=== PATIENT | female | born 1950 | race Caucasian/White ===

== ENCOUNTER 2016-06-26 12:33 | Inpatient (IN) ==
[2016-06-26] MEDS ORDERED: 0.9 % Sodium Chloride 2,000 ML ONE (12:42)
[2016-06-26] MEDS ORDERED: 0.9 % Sodium Chloride 1,000 ML IVC ONE ×3 (12:54→15:49)
--- NOTE | 2016-06-26 12:59 | Emergency Department Note ---
Disposition Clinical Impression: Syncope Qualifiers: Syncope type: unspecified Qualified Code(s): R55 - Syncope and collapse Leukocytosis Qualifiers: Leukocytosis type: other Qualified Code(s): D72.828 - Other elevated white blood cell count Hypotension Qualifiers: Hypotension type: unspecified hypotension type Qualified Code(s): I95.9 - Hypotension, unspecified Disposition: Admitted As Inpatient Condition: Undetermined Referrals: NO,PCP [Non-Partnered Physician] - Forms: ED Satisfaction Letter Time of Disposition: 15:48 Syncope HPI - General Chief Complaint: ED Syncope Stated Complaint: syncope Time Seen by Provider: 06/26/16 12:44 Source: patient Mode of arrival: EMS Limitations: no limitations Nursing Notes Reviewed: Yes Vital Signs Reviewed: Yes - History of Present Illness HPI Narrative: 65-year-old female with history of AR, hypertension, hyperlipidemia, aortic aneurysm right [facility] after experiencing heart palpitations last night. The patient stated that she had a syncopal episode where she hurt her left shoulder this morning. The patient arrives to the emergency department slightly hypotensive. Her blood pressures 80s over 50s at this time. The patient is mentating appropriately. She is answering questions appropriately. She is a GCS of 15 at this time. The patient is complaining of slight abdominal pain as well. The patient states that over the past few days she has been coughing and has "sore ribs". The patient denies any fevers. She denies any previous history of anything like this in the past. Patient denies any other complaints. Pt Subjective Complaint: loss of consciousness Onset (ago): Just [employer] Number of episodes: 1 Prodromal Symptoms: lightheaded Witnessed: yes - by bystander Context: at rest Injuries Sustained Associated with Event: none Current Symptoms: abdominal pain History: none Treatments prior to arrival: none Associated trauma secondary to event: Yes Trauma description: - Related Data Home Medications Medication Instructions Recorded Confirmed Albuterol Neb [Proventil Neb] 2.5 mg IH QID PRN 06/26/16 06/26/16 Alprazolam [Xanax 0.5 MG Tablet] 0.5 mg PO BID PRN 06/26/16 06/26/16 Aspirin 81 mg PO DAILY 06/26/16 06/26/16 Atorvastatin [Lipitor] 40 mg PO HS 06/26/16 06/26/16 Carbidopa/Levodopa 25/100 [Sinemet 1 each PO QID 06/26/16 06/26/16 25/100] Fluticasone Propionate Nasal 50 mcg NS DAILY PRN 06/26/16 06/26/16 [Flonase] HYDROcodone/Acet 5/325 mg [[place] 1 tab PO Q8H PRN 06/26/16 06/26/16 5-325 mg] Metoprolol XL (24 HR) Succ [Toprol 50 mg PO DAILY 06/26/16 06/26/16 XL] Nitroglycerin [Nitrostat] 0.4 mg SL Q5M PRN 06/26/16 06/26/16 Oxygen 2 l NS AD 06/26/16 06/26/16 Pantoprazole Sodium [Protonix] 40 mg PO DAILY 06/26/16 06/26/16 Potassium Chloride [K-Tab ER] 20 meq PO DAILY 06/26/16 06/26/16 Ropinirole HCl [Requip] 0.5 mg PO HS 06/26/16 06/26/16 Sertraline [Zoloft] 50 mg PO DAILY 06/26/16 06/26/16 Allergies Allergy/AdvReac Type Severity Reaction Status Date / Time Cyclobenzaprine Allergy Agitated Verified 06/17/16 21:10 levofloxacin [From Levaquin] Allergy See Verified 06/17/16 21:10 Comments morphine Allergy Rash Verified 06/17/16 21:10 amitriptyline AdvReac See Verified 06/17/16 21:10 Comments fentanyl AdvReac Itching Verified 06/17/16 21:10 ondansetron AdvReac Itching Verified 06/17/16 21:10 [From Zofran (as hydrochloride)] Past Medical History - Past Medical History Medical history: Reports: aortic aneurysm, COPD, myocardial infarction, other Surgical history: Reports: breast surgery, coronary bypass (CABG) Psychiatric history: Reports: anxiety - Social History Smoking Status: Current every day smoker Smokeless Tobacco Status: No Alcohol use: Reports: none Drug use: Reports: none Physical Exam - General Limitations: no limitations General appearance: alert Course - Reevaluation(s) Reevaluation #1: Patient's CT of her abdomen revealed no acute findings. 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 Given the patient's blood pressure response to IV fluids, we will treat this as a possible sepsis. The patient did have recent upper respiratory infection she was treated on antibiotic. She is also having lower abdominal suprapubic pain. The patient has been responding to IV fluids. She has received 1.5 L at this time with her latest blood pressure being 112/52. The patient states she is feeling better overall. We will place the patient in a sling at this time. We will begin the patient on vancomycin and Zosyn. Time: 14:03 Reevaluation #2: Patient remains be normotensive. Patient states she is overall feeling much better at this time. Urinalysis is negative. The patient does have a leukocytosis with a mild left shift. The patient is not meningitic and has no nuchal rigidity at this time. This does not appear to be vasovagal as the hypotension persisted and was very responsive to fluids. The patient's abdominal CT demonstrates no acute findings. Chest x-ray demonstrates no acute findings. The patient does have a left lateral clavicular fracture. The patient's leukocytosis, with her syncope and hypotension cannot be explained at this time. We do not feels the patient is safe enough to go home at this time. We will admit the patient to the hospital with further workup. The patient was started on vancomycin and Zosyn. Blood cultures were drawn. Lactic acid was 1.7. The patient's left upper extremity is placed in a sling. Time: 14:48 Vital Signs Temperature 97.6 F 06/26/16 12:34 Pulse Rate 64 06/26/16 12:34 Respiratory Rate 18 06/26/16 12:34 Blood Pressure 61/30 06/26/16 12:34 O2 Sat by Pulse Oximetry 98 06/26/16 12:34 Temperature 97.6 F 06/26/16 12:34 Pulse Rate 62 06/26/16 15:11 Respiratory Rate 18 06/26/16 15:11 Blood Pressure 105/55 06/26/16 15:11 O2 Sat by Pulse Oximetry 98 06/26/16 15:11 Oxygen Delivery Oxygen Delivery Nasal Cannula Syncope - MDM Narrative Medical decision making narrative: Patient accepted by Brittney Adhikari NP. - Medical Records Medical records reviewed: Yes I reviewed the patient's medical records. - Lab Data Lab results reviewed: Yes I reviewed the patient's lab results. Result diagrams: 03/27/17 12:45 06/26/16 12:45 Lab Results 06/26/16 06/26/16 06/26/16 Range/Units 12:45 12:45 12:45 WBC 18.9 H (4.3-11.1) K/mcL RBC 5.81 H (3.82-4.97) M/mcL Hgb 17.2 H (11.5-15.4) g/dL Hct 50.9 H (35.3-44.9) % MCV 87.6 (83.0-100.0) fL MCH 29.6 (28.0-33.3) pg MCHC 33.8 (31.6-35.5) g/dL RDW 14.3 (11.5-14.5) % Plt Count 286 (140-400) K/mcL MPV 8.5 L (9.4-12.4) fL Immature Gran % 1.5 (0-4) % Seg Neutrophils % 74.7 % Lymphocytes % 14.5 % Monocytes % 8.6 % Eosinophils % 0.4 % Basophils % 0.3 % Neutrophils # 14.1 H (1.6-8.9) K/mcL Lymphocytes # 2.7 (0.6-4.6) K/mcL Monocytes # 1.6 H (0.0-1.3) K/mcL Eosinophils # 0.1 (0.0-0.6) K/mcL Basophils # 0.1 (0.0-0.2) K/mcL PT 10.9 (9.4-12.1) Seconds INR 1.0 APTT 23.2 L (26.0-36.0) Seconds Sodium 137 (136-145) mEq/L Potassium 4.1 (3.5-4.5) mEq/L Chloride 104 (98-109) mEq/L Carbon Dioxide 26 (19-29) mEq/L BUN 26 H (7-20) mg/dL Creatinine 0.90 (0.57-1.11) mg/dL Est GFR ( Amer) > 60 (> 60) Est GFR (Non-Af Amer) > 60 (> 60) BUN/Creatinine Ratio 29 H (6-26) Glucose 104 H (70-99) mg/dL Calculated Osmolality 289 (280-300) Lactic Acid (0.5-2.2) mmol/L Calcium 9.1 (8.6-10.8) mg/dL Troponin I (0-0.03) ng/mL Urine Color (Yellow) Urine Clarity (Clear) Urine pH (5.0-8.0) pH Units Ur Specific [place] (1.010-1.025) Urine Protein (Neg-Trace) mg/dL Urine Glucose (UA) (Normal) mg/dL Urine Ketones (Negative) mg/dL Urine Blood (Negative) Urine Nitrite (Negative) Urine Bilirubin (Negative) Urine Urobilinogen (Normal) mg/dL Ur Leukocyte Esterase (Negative) Urine Microscopic RBC (0-3) per hpf Urine Microscopic WBC (0-3) per hpf Ur Squamous Epith Cells (None-Few) per lpf Urine Bacteria (None-Few) per hpf Hyaline Casts (None-Few) per lpf Blood Type Antibody Screen 06/26/16 06/26/16 06/26/16 Range/Units 12:45 12:45 13:05 WBC (4.3-11.1) K/mcL RBC (3.82-4.97) M/mcL Hgb (11.5-15.4) g/dL Hct (35.3-44.9) % MCV (83.0-100.0) fL MCH (28.0-33.3) pg MCHC (31.6-35.5) g/dL RDW (11.5-14.5) % Plt Count (140-400) K/mcL MPV (9.4-12.4) fL Immature Gran % (0-4) % Seg Neutrophils % % Lymphocytes % % Monocytes % % Eosinophils % % Basophils % % Neutrophils # (1.6-8.9) K/mcL Lymphocytes # (0.6-4.6) K/mcL Monocytes # (0.0-1.3) K/mcL Eosinophils # (0.0-0.6) K/mcL Basophils # (0.0-0.2) K/mcL PT (9.4-12.1) Seconds INR APTT (26.0-36.0) Seconds Sodium (136-145) mEq/L Potassium (3.5-4.5) mEq/L Chloride (98-109) mEq/L Carbon Dioxide (19-29) mEq/L BUN (7-20) mg/dL Creatinine (0.57-1.11) mg/dL Est GFR ( Amer) (> 60) Est GFR (Non-Af Amer) (> 60) BUN/Creatinine Ratio (6-26) Glucose (70-99) mg/dL Calculated Osmolality (280-300) Lactic Acid 1.7 (0.5-2.2) mmol/L Calcium (8.6-10.8) mg/dL Troponin I 0.00 (0-0.03) ng/mL Urine Color (Yellow) Urine Clarity (Clear) Urine pH (5.0-8.0) pH Units Ur Specific [place] (1.010-1.025) Urine Protein (Neg-Trace) mg/dL Urine Glucose (UA) (Normal) mg/dL Urine Ketones (Negative) mg/dL Urine Blood (Negative) Urine Nitrite (Negative) Urine Bilirubin (Negative) Urine Urobilinogen (Normal) mg/dL Ur Leukocyte Esterase (Negative) Urine Microscopic RBC (0-3) per hpf Urine Microscopic WBC (0-3) per hpf Ur Squamous Epith Cells (None-Few) per lpf Urine Bacteria (None-Few) per hpf Hyaline Casts (None-Few) per lpf Blood Type A POSITIVE Antibody Screen NEGATIVE 06/26/16 Range/Units 13:57 WBC (4.3-11.1) K/mcL RBC (3.82-4.97) M/mcL Hgb (11.5-15.4) g/dL Hct (35.3-44.9) % MCV (83.0-100.0) fL MCH (28.0-33.3) pg MCHC (31.6-35.5) g/dL RDW (11.5-14.5) % Plt Count (140-400) K/mcL MPV (9.4-12.4) fL Immature Gran % (0-4) % Seg Neutrophils % % Lymphocytes % % Monocytes % % Eosinophils % % Basophils % % Neutrophils # (1.6-8.9) K/mcL Lymphocytes # (0.6-4.6) K/mcL Monocytes # (0.0-1.3) K/mcL Eosinophils # (0.0-0.6) K/mcL Basophils # (0.0-0.2) K/mcL PT (9.4-12.1) Seconds INR APTT (26.0-36.0) Seconds Sodium (136-145) mEq/L Potassium (3.5-4.5) mEq/L Chloride (98-109) mEq/L Carbon Dioxide (19-29) mEq/L BUN (7-20) mg/dL Creatinine (0.57-1.11) mg/dL Est GFR ( Amer) (> 60) Est GFR (Non-Af Amer) (> 60) BUN/Creatinine Ratio (6-26) Glucose (70-99) mg/dL Calculated Osmolality (280-300) Lactic Acid (0.5-2.2) mmol/L Calcium (8.6-10.8) mg/dL Troponin I (0-0.03) ng/mL Urine Color Yellow (Yellow) Urine Clarity Clear (Clear) Urine pH 6.0 (5.0-8.0) pH Units Ur Specific [place] 1.025 (1.010-1.025) Urine Protein Negative (Neg-Trace) mg/dL Urine Glucose (UA) Normal (Normal) mg/dL Urine Ketones Negative (Negative) mg/dL Urine Blood Small H (Negative) Urine Nitrite Negative (Negative) Urine Bilirubin Negative (Negative) Urine Urobilinogen Normal (Normal) mg/dL Ur Leukocyte Esterase Negative (Negative) Urine Microscopic RBC 5-15 H (0-3) per hpf Urine Microscopic WBC 0-3 (0-3) per hpf Ur Squamous Epith Cells Many H (None-Few) per lpf Urine Bacteria None Seen (None-Few) per hpf Hyaline Casts None Seen (None-Few) per lpf Blood Type Antibody Screen - Radiology Data Radiology results reviewed: Yes I reviewed the patient's radiology results. - EKG Data EKG attestation: Yes I reviewed and interpreted this EKG. EKG results narrative: EKG #1. Normal sinus rhythm. Heart rate 77 bpm. NE interval 142 ms. QTC 375 ms. Normal axis. Normal sinus rhythm with no ST elevation or ST depression noted. EKG is difficult to assess due to patient's artifact. EKG will be repeated. EKG #2 heart rate 65 bpm. NE interval 140 ms. QTc [address] elevation or ST depression noted. In leads 2, 3, aVF with prominent Q waves noted. No acute changes noted.
--- NOTE | 2016-06-26 13:02 | Emergency Department Note ---
Disposition Clinical Impression: Syncope, Leukocytosis, Hypotension Disposition: Admitted As Inpatient Condition: Undetermined General Adult HPI - General Chief complaint: ED Syncope Stated complaint: syncope Time Seen by Provider: 06/26/16 12:44 Source: patient Mode of arrival: EMS Limitations: no limitations - History of Present Illness Pain Scale: 5 - Related Data Home Medications Medication Instructions Recorded Confirmed Albuterol Neb [Proventil Neb] 2.5 mg IH QID PRN 06/26/16 06/26/16 Alprazolam [Xanax 0.5 MG Tablet] 0.5 mg PO BID PRN 06/26/16 06/26/16 Aspirin 81 mg PO DAILY 06/26/16 06/26/16 Atorvastatin [Lipitor] 40 mg PO HS 06/26/16 06/26/16 Carbidopa/Levodopa [Sinemet 1 each PO QID 06/26/16 06/26/16] Fluticasone Propionate Nasal 50 mcg NS DAILY PRN 06/26/16 06/26/16 [Flonase] HYDROcodone/Acet 5/325 mg [[place] 1 tab PO Q8H PRN 06/26/16 06/26/16 5-325 mg] Metoprolol XL (24 HR) Succ [Toprol 50 mg PO DAILY 06/26/16 06/26/16 XL] Nitroglycerin [Nitrostat] 0.4 mg SL Q5M PRN 06/26/16 06/26/16 Oxygen 2 l NS AD 06/26/16 06/26/16 Pantoprazole Sodium [Protonix] 40 mg PO DAILY 06/26/16 06/26/16 Potassium Chloride [K-Tab ER] 20 meq PO DAILY 06/26/16 06/26/16 Ropinirole HCl [Requip] 0.5 mg PO HS 06/26/16 06/26/16 Sertraline [Zoloft] 50 mg PO DAILY 06/26/16 06/26/16 Allergies Allergy/AdvReac Type Severity Reaction Status Date / Time Cyclobenzaprine Allergy Agitated Verified 06/17/16 21:10 levofloxacin [From Levaquin] Allergy See Verified 06/17/16 21:10 Comments morphine Allergy Rash Verified 06/17/16 21:10 amitriptyline AdvReac See Verified 06/17/16 21:10 Comments fentanyl AdvReac Itching Verified 06/17/16 21:10 ondansetron AdvReac Itching Verified 06/17/16 21:10 [From Zofran (as hydrochloride)] Past Medical History - Past Medical History Medical history: Reports: aortic aneurysm, COPD, myocardial infarction, other Surgical history: Reports: breast surgery, coronary bypass (CABG) Psychiatric history: Reports: anxiety - Social History Smoking Status: Current every day smoker Smokeless Tobacco Status: No Alcohol use: Reports: none Drug use: Reports: none Physical Exam - General Limitations: no limitations General appearance: alert Course - Reevaluation(s) Reevaluation #1: I saw the patient with the resident, Dr. Castañeda. Patient presents after a syncopal episode in her bathroom. I talked with her and she said she felt a little weak last night. Went to bed and woke up early this morning and was feeling so little bit run down and went back to bed got up prior to arrival to the emergency department and went back to the bathroom and said she started feeling really weak and lightheaded and actually fell to the ground. She injured her left shoulder but denies any other injury. He was have been sick the prior week with bronchitis and was treated with antibiotics and is still coughing but says that her chest feels pretty sore with coughing. She denied abdominal pain to me but when I did my abdominal examination she had epigastric tenderness and she had left lower quadrant tenderness. Patient has a known aneurysm. She is obese. I tried to do transabdominal ultrasound and saw some aneurysm but did not see any free fluid in the belly. Initial EKG is not showing evidence of acute ischemia although she is be some indication of old changes inferiorly. We are getting a quick repeat to make sure this is not an inferior IN because the patient is very hypotensive yet her heart rate is only 70. If the EKG does not show IN, patient will be taken straight to CAT scan for evaluation of the abdomen. The patient is alert and oriented and other than the left shoulder pain and feeling lightheaded, she has no other complaint despite the physical exam findings. Time: 13:02 Reevaluation #2: Repeat EKG does not show any acute ischemic changes. Patient is looking better and feeling better. Blood pressure is coming up with the IV fluids. She is just come back from CT and we are waiting for the results. Time: 13:14 Reevaluation #3: CT scan was negative for aneurysm bleeding. No other obvious intra-abdominal pathology was seen. Patient's blood pressure did come up to triple digits. We see now his white count is over 18,000. Coupling this elevated white count with hypotension and tenderness to the lower abdomen, I suspect possible urinary tract infection and maybe urosepsis. She does have a broken left collarbone but I do not think this hypotension is vasovagal because it is just been to persistent and it does not explain the elevated white count. We will start working the patient up for sepsis. We will wait for the urine result. Either way she needs to be admitted to the hospital. Time: 14:00 Vital Signs Temperature 97.6 F 06/26/16 12:34 Pulse Rate 64 06/26/16 12:34 Respiratory Rate 18 06/26/16 12:34 Blood Pressure 61/30 06/26/16 12:34 O2 Sat by Pulse Oximetry 98 06/26/16 12:34 Temperature 98.2 F 06/26/16 19:52 Pulse Rate 62 06/26/16 19:52 Respiratory Rate 17 06/26/16 19:52 Blood Pressure 99/55 06/26/16 19:52 O2 Sat by Pulse Oximetry 96 06/26/16 19:52 Oxygen Delivery Oxygen Delivery Nasal Cannula Medical Decision Making - Lab Data Result diagrams: 06/26/16 12:45 06/26/16 12:45 Lab Results 06/26/16 06/26/16 06/26/16 Range/Units 12:45 12:45 12:45 WBC 18.9 H (4.3-11.1) K/mcL RBC 5.81 H (3.82-4.97) M/mcL Hgb 17.2 H (11.5-15.4) g/dL Hct 50.9 H (35.3-44.9) % MCV 87.6 (83.0-100.0) fL MCH 29.6 (28.0-33.3) pg MCHC 33.8 (31.6-35.5) g/dL RDW 14.3 (11.5-14.5) % Plt Count 286 (140-400) K/mcL MPV 8.5 L (9.4-12.4) fL Immature Gran % 1.5 (0-4) % Seg Neutrophils % 74.7 % Lymphocytes % 14.5 % Monocytes % 8.6 % Eosinophils % 0.4 % Basophils % 0.3 % Neutrophils # 14.1 H (1.6-8.9) K/mcL Lymphocytes # 2.7 (0.6-4.6) K/mcL Monocytes # 1.6 H (0.0-1.3) K/mcL Eosinophils # 0.1 (0.0-0.6) K/mcL Basophils # 0.1 (0.0-0.2) K/mcL PT 10.9 (9.4-12.1) Seconds INR 1.0 APTT 23.2 L (26.0-36.0) Seconds Sodium 137 (136-145) mEq/L Potassium 4.1 (3.5-4.5) mEq/L Chloride 104 (98-109) mEq/L Carbon Dioxide 26 (19-29) mEq/L BUN 26 H (7-20) mg/dL Creatinine 0.90 (0.57-1.11) mg/dL Est GFR ( Amer) > 60 (> 60) Est GFR (Non-Af Amer) > 60 (> 60) BUN/Creatinine Ratio 29 H (6-26) Glucose 104 H (70-99) mg/dL Calculated Osmolality 289 (280-300) Lactic Acid (0.5-2.2) mmol/L Calcium 9.1 (8.6-10.8) mg/dL Troponin I (0-0.03) ng/mL Urine Color (Yellow) Urine Clarity (Clear) Urine pH (5.0-8.0) pH Units Ur Specific [place] (1.010-1.025) Urine Protein (Neg-Trace) mg/dL Urine Glucose (UA) (Normal) mg/dL Urine Ketones (Negative) mg/dL Urine Blood (Negative) Urine Nitrite (Negative) Urine Bilirubin (Negative) Urine Urobilinogen (Normal) mg/dL Ur Leukocyte Esterase (Negative) Urine Microscopic RBC (0-3) per hpf Urine Microscopic WBC (0-3) per hpf Ur Squamous Epith Cells (None-Few) per lpf Urine Bacteria (None-Few) per hpf Hyaline Casts (None-Few) per lpf Blood Type Antibody Screen 03/27/17 03/27/17 03/27/17 Range/Units 12:45 12:45 13:05 WBC (4.3-11.1) K/mcL RBC (3.82-4.97) M/mcL Hgb (11.5-15.4) g/dL Hct (35.3-44.9) % MCV (83.0-100.0) fL MCH (28.0-33.3) pg MCHC (31.6-35.5) g/dL RDW (11.5-14.5) % Plt Count (140-400) K/mcL MPV (9.4-12.4) fL Immature Gran % (0-4) % Seg Neutrophils % % Lymphocytes % % Monocytes % % Eosinophils % % Basophils % % Neutrophils # (1.6-8.9) K/mcL Lymphocytes # (0.6-4.6) K/mcL Monocytes # (0.0-1.3) K/mcL Eosinophils # (0.0-0.6) K/mcL Basophils # (0.0-0.2) K/mcL PT (9.4-12.1) Seconds INR APTT (26.0-36.0) Seconds Sodium (136-145) mEq/L Potassium (3.5-4.5) mEq/L Chloride (98-109) mEq/L Carbon Dioxide (19-29) mEq/L BUN (7-20) mg/dL Creatinine (0.57-1.11) mg/dL Est GFR ( Amer) (> 60) Est GFR (Non-Af Amer) (> 60) BUN/Creatinine Ratio (6-26) Glucose (70-99) mg/dL Calculated Osmolality (280-300) Lactic Acid 1.7 (0.5-2.2) mmol/L Calcium (8.6-10.8) mg/dL Troponin I 0.00 (0-0.03) ng/mL Urine Color (Yellow) Urine Clarity (Clear) Urine pH (5.0-8.0) pH Units Ur Specific [place] (1.010-1.025) Urine Protein (Neg-Trace) mg/dL Urine Glucose (UA) (Normal) mg/dL Urine Ketones (Negative) mg/dL Urine Blood (Negative) Urine Nitrite (Negative) Urine Bilirubin (Negative) Urine Urobilinogen (Normal) mg/dL Ur Leukocyte Esterase (Negative) Urine Microscopic RBC (0-3) per hpf Urine Microscopic WBC (0-3) per hpf Ur Squamous Epith Cells (None-Few) per lpf Urine Bacteria (None-Few) per hpf Hyaline Casts (None-Few) per lpf Blood Type A POSITIVE Antibody Screen NEGATIVE 06/26/16 Range/Units 13:57 WBC (4.3-11.1) K/mcL RBC (3.82-4.97) M/mcL Hgb (11.5-15.4) g/dL Hct (35.3-44.9) % MCV (83.0-100.0) fL MCH (28.0-33.3) pg MCHC (31.6-35.5) g/dL RDW (11.5-14.5) % Plt Count (140-400) K/mcL MPV (9.4-12.4) fL Immature Gran % (0-4) % Seg Neutrophils % % Lymphocytes % % Monocytes % % Eosinophils % % Basophils % % Neutrophils # (1.6-8.9) K/mcL Lymphocytes # (0.6-4.6) K/mcL Monocytes # (0.0-1.3) K/mcL Eosinophils # (0.0-0.6) K/mcL Basophils # (0.0-0.2) K/mcL PT (9.4-12.1) Seconds INR APTT (26.0-36.0) Seconds Sodium (136-145) mEq/L Potassium (3.5-4.5) mEq/L Chloride (98-109) mEq/L Carbon Dioxide (19-29) mEq/L BUN (7-20) mg/dL Creatinine (0.57-1.11) mg/dL Est GFR ( Amer) (> 60) Est GFR (Non-Af Amer) (> 60) BUN/Creatinine Ratio (6-26) Glucose (70-99) mg/dL Calculated Osmolality (280-300) Lactic Acid (0.5-2.2) mmol/L Calcium (8.6-10.8) mg/dL Troponin I (0-0.03) ng/mL Urine Color Yellow (Yellow) Urine Clarity Clear (Clear) Urine pH 6.0 (5.0-8.0) pH Units Ur Specific [place] 1.025 (1.010-1.025) Urine Protein Negative (Neg-Trace) mg/dL Urine Glucose (UA) Normal (Normal) mg/dL Urine Ketones Negative (Negative) mg/dL Urine Blood Small H (Negative) Urine Nitrite Negative (Negative) Urine Bilirubin Negative (Negative) Urine Urobilinogen Normal (Normal) mg/dL Ur Leukocyte Esterase Negative (Negative) Urine Microscopic RBC 5-15 H (0-3) per hpf Urine Microscopic WBC 0-3 (0-3) per hpf Ur Squamous Epith Cells Many H (None-Few) per lpf Urine Bacteria None Seen (None-Few) per hpf Hyaline Casts None Seen (None-Few) per lpf Blood Type Antibody Screen Attestation Statement - Attestation Attestation: I, Dr. Matos, examined this patient [id number] and my medical decision- making was reviewed with Dr. Castañeda, Resident Physician. I agree with the documented findings, disposition and treatment plan as described except to the extent set forth below. Please see my progress notes for details.
[2016-06-26 13:06] LABS: Basophils # 0.1 K/mcL (0.0-0.2); Basophils % 0.3 %; Eosinophils # 0.1 K/mcL (0.0-0.6); Eosinophils % 0.4 %; Hematocrit 50.9 % (35.3-44.9); Hemoglobin 17.2 g/dL (11.5-15.4); Immature Granulocytes % 1.5 % (0-4); Lymphocytes # 2.7 K/mcL (0.6-4.6); Lymphocytes % 14.5 %; Mean Corpuscular HGB Conc 33.8 g/dL (31.6-35.5); Mean Corpuscular Hemoglobin 29.6 pg (28.0-33.3); Mean Corpuscular Volume 87.6 fL (83.0-100.0); Mean Platelet Volume 8.5 fL (9.4-12.4); Monocytes # 1.6 K/mcL (0.0-1.3); Monocytes % 8.6 %; Neutrophils # 14.1 K/mcL (1.6-8.9); Platelet Count 286 K/mcL (140-400); Red Blood Count 5.81 M/mcL (3.82-4.97); Red Cell Distribution Width 14.3 % (11.5-14.5); Segmented Neutrophils % 74.7 %
[2016-06-26 13:10] LABS: Prothrombin Time 10.9 Seconds (9.4-12.1)
[2016-06-26 13:12] LABS: BUN/Creatinine Ratio 29 (6-26); Blood Urea Nitrogen 26 mg/dL (7-20); Calcium 9.1 mg/dL (8.6-10.8); Carbon Dioxide 26 mEq/L (19-29); Chloride 104 mEq/L (98-109); Glucose 104 mg/dL (70-99); Osmolality,Calculated 289 (280-300); Potassium 4.1 mEq/L (3.5-4.5); Sodium 137 mEq/L (136-145); eGFR For African Americans > 60 (> 60); eGFR For Non-African Americans > 60 (> 60)
[2016-06-26 13:13] LABS: Activated Partial Thrombo Time 23.2 Seconds (26.0-36.0)
[2016-06-26] MEDS ORDERED: Piperacillin/Tazobactam 3.375 GM in D5% in Water (Mini-Bag+) 100 ML IVPB ONE (13:56)
[2016-06-26] MEDS ORDERED: Vancomycin 750 MG in D5% in Water 250 ML IVPB ONE (13:56)
[2016-06-26] MEDS ORDERED: Ketorolac 15 MG/ML VIAL IVP ONE (14:15)
[2016-06-26 14:29] LABS: Bilirubin,Urine Negative (Negative); Blood,Urine Small (Negative); Clarity,Urine Clear (Clear); Color,Urine Yellow (Yellow); Glucose,Urine (UA) Normal (Normal); Ketones,Urine Negative (Negative); Leukocyte Esterase,Urine Negative (Negative); Nitrite,Urine Negative (Negative); Protein,Urine Negative (Neg-Trace); Specific Gravity,Urine 1.025 (1.010-1.025); Urobilinogen,Urine Normal (Normal)
[2016-06-26 14:31] LABS: Bacteria,Urine None Seen per hpf (None-Few); Hyaline Casts,Urine None Seen per lpf (None-Few); Squamous Epithelial Cell,Urine Many per lpf (None-Few); WBC,Urine 0-3 per hpf (0-3)
[2016-06-26] MEDS ORDERED: *HR* HYDROcodone/Acet 5/325 mg TABLET PO ONE (16:38)
--- NOTE | 2016-06-26 20:28 | Internal Med History&Physical ---
Date of Encounter: 06/26/16 Time of Encounter: 20:17 Assessment and Plan (1) Syncope Current visit: Yes Status: Acute The patient was admitted due to syncope, based on patient's clinical presentation was likely etiology is vasovagal. She had an echocardiogram done back in 2014, ejection fraction was 60-65%, no evidence of significant valve dysfunction. The patient has not been eating or drinking well in the past couple of days, we will give IV fluids. Encourage by mouth hydration. Initially is slightly hypotensive, evening prior to hospital admission this patient has been slightly hypotensive. We will continue monitoring the patient closely, continue with IV fluids. She was recently given some steroids for an acute bronchitis, a possible component of some adrenal suppression needs to be considered, we will obtain a cortisol level tomorrow in a.m. Will obtain TSH levels. No chest pain, negative cardiac biomarkers. Continue with telemetry monitoring. Qualifiers: Syncope type: vasovagal syncope Qualified Code(s): R55 - Syncope and collapse (2) Leukocytosis Current visit: Yes Status: Acute Leukocytosis is concerning, however she was also taking the steroids prior to this admission and steroid induced leukocytosis is to be considered. However, she was initially given some antibiotics in the emergency department. We will continue with the same, we will obtain cultures and reassess clinically. Adjust medications according to culture results. Patient denies any other signs of infection such as diarrhea, fever, chills, productive cough, confusion. Qualifiers: Leukocytosis type: other Qualified Code(s): D72.828 - Other elevated white blood cell count (3) Hypotension Current visit: Yes Status: Acute Qualifiers: Hypotension type: unspecified hypotension type Qualified Code(s): I95.9 - Hypotension, unspecified (4) Obesity Current visit: Yes Status: Acute Qualifiers: Obesity type: unspecified obesity type Obesity severity: unspecified obesity severity Qualified Code(s): E66.9 - Obesity, unspecified (5) History of aortic aneurysm Current visit: Yes Status: Acute Internal Medicine - H&P: HPI Chief complaint: I passed out Admitted From: Emergency Dept Plans for Post Hospital Care: Home History of present illness: Ms. Alvarez is a 65 year old female with PMH of COPD on LTOT, obesity, attention, aortic aneurysm, tremors (not parkinsons, she says), active smoker. The patient states that today at around 10 AM she went to the bathroom and attempted to urinate and have a bowel movement, she was pushing very hard however she was unsuccessful. She was on her way back to her bedroom and felt the dizzy and passed out for a few seconds. The patient denies chest pain, shortness of breath, fever, chills, diarrhea, dysuria, rash. She presented to the emergency department and underwent initial workup included a WBC count of 18.9, hemoglobin 17.2, hematocrit 50.2,. Platelet Count 286,000. Sodium 137, potassium 4.1, chloride 104, bicarbonate 26, BUN/creatinine 26, creatinine 0.90. Glucose 104. Urinalysis was essentially unremarkable. Chest x-ray did not reveal acute infiltrate. CT of the abdomen did not reveal acute findings. Of note, the patient was treated for an acute bronchitis the last couple of weeks, she has received a course of antibiotics along with systemic steroids. He states that he took prednisone 20 mg daily for at least 4 days, and then was on 60 mg daily for at least 5 days. She stopped steroids on Sunday. Upon arrival to the emergency department her blood pressure was low, it was 90/42, however she was not tachycardic with a heart rate of 68, respiratory rate was 18 , oxygen saturation was 96%. I examined this patient which was already in 2 N. , she was otherwise asymptomatic, denied chest pain and shortness of breath. Patient states that has not been eating well or drinking too much fluid in the last few days. Past Med Surg Social Fam HX - Past Medical History Medical history: aortic aneurysm, COPD, myocardial infarction, other Psychiatric history: anxiety, depression - Past Surgical History Surgical History: breast surgery - Social History Smoking Status: Current some day smoker Smokeless Tobacco Status: No Alcohol use: none Drug use: none Internal Medicine - H&P: Meds Albuterol Neb [Proventil Neb] 2.5 mg IH QID PRN 06/26/16 [History] Alprazolam [Xanax 0.5 MG Tablet] 0.5 mg PO BID PRN 06/26/16 [History] Aspirin 81 mg PO DAILY 06/26/16 [History] Atorvastatin [Lipitor] 40 mg PO HS 06/26/16 [History] Carbidopa/Levodopa 25/100 [Sinemet 25/100] 1 each PO QID 06/26/16 [History] Fluticasone Propionate Nasal [Flonase] 50 mcg NS DAILY PRN 06/26/16 [History] HYDROcodone/Acet 5/325 mg [[place] 5-325 mg] 1 tab PO Q8H PRN 06/26/16 [History] Metoprolol XL (24 HR) Succ [Toprol XL] 50 mg PO DAILY 06/26/16 [History] Nitroglycerin [Nitrostat] 0.4 mg SL Q5M PRN 06/26/16 [History] Oxygen 2 l NS AD 06/26/16 [History] Pantoprazole Sodium [Protonix] 40 mg PO DAILY 06/26/16 [History] Potassium Chloride [K-Tab ER] 20 meq PO DAILY 06/26/16 [History] Ropinirole HCl [Requip] 0.5 mg PO HS 06/26/16 [History] Sertraline [Zoloft] 50 mg PO DAILY 06/26/16 [History] Allergies Cyclobenzaprine Allergy (Verified 06/17/16 21:10) Agitated levofloxacin [From Levaquin] Allergy (Verified 06/17/16 21:10) See Comments unsure morphine Allergy (Verified 06/17/16 21:10) Rash amitriptyline Adverse Reaction (Verified 06/17/16 21:10) See Comments makes her nervous fentanyl Adverse Reaction (Verified 06/17/16 21:10) Itching ondansetron [From Zofran (as hydrochloride)] Adverse Reaction (Verified 21:10) Itching All Systems PM: A 10-system review of systems was performed and is negative for pertinent findings except as documented above in the HPI. - Constitutional Constitutional: as per HPI, no chills, no fever(s), no night sweats - EENT Eyes: as per HPI, no change in vision, no discharge, no pain, no photophobia Ears: as per HPI, no ear discharge, no ear pain, no tinnitus Nose, mouth and throat: as per HPI, no dysphagia, no nasal discharge, no neck pain, no sore throat - Breasts Breasts: as per HPI - Cardiovascular Cardiovascular ROS IM: as per HPI, no chest pain, no diaphoresis, no dyspnea, no lightheadedness, no palpitations, no syncope - Respiratory Respiratory: as per HPI, no cough, no dyspnea, no wheezing, no excessive phlegm production - Gastrointestinal Gastrointestinal: as per HPI, no abdominal pain, no diarrhea, no hematemesis, no hematochezia, no melena, no nausea, no vomiting - Genitourinary Genitourinary: as per HPI, no change in urinary stream, no dysuria, no flank pain, no hematuria Menstruation: as per HPI - Musculoskeletal Musculoskeletal ROS IM: as per HPI, no numbness, no tingling - Integumentary Integumentary IM: as per HPI, no rash, no unusual bruising - Neurological Neurological ROS: as per HPI, dizziness, no confusion, no convulsions, no focal weakness, no numbness, no tingling, no tremor(s) - Psychiatric Psychiatric: as per HPI - Endocrine Endocrine IM: as per HPI - Hematologic/Lymphatic Hematologic/Lymphatic: as per HPI, no easy bruising - Allergic/Immunologic Allergic/Immunologic: as per HPI - Constitutional Vitals: Temp Pulse Resp BP Pulse Ox 98.2 F 62 17 99/55 96 06/26/16 19:52 06/26/16 19:52 06/26/16 19:52 06/26/16 19:52 06/26/16 19:52 General appearance: Present: A&O X 3, pleasant, no acute distress, obese - Head Head exam: Present: atraumatic, normocephalic - Eye Eye exam: Present: PERRL, conjuntiva pink, sclera anicteric Pupils: Present: PERRL - Neck Neck exam general surgery: Present: supple, trachea midline. Absent: lymphadenopathy - Respiratory Respiratory exam: Present: CTAB. Absent: accessory muscle use, rales, rhonchi, wheezes - Cardiovascular Cardiovascular exam: Present: RRR, +S1, +S2. Absent: diastolic murmur, gallop, rubs, systolic murmur - GI/Abdominal GI/Abdominal exam: Present: normal bowel sounds, soft, no peritoneal signs. Absent: distended, tenderness - Extremities Exam Extremities exam: Present: warm, radial pulses palpable and symetrical. Absent : calf tenderness, cyanotic, pedal edema - Neurological Exam Neurological exam: Present: CN II-XII intact, oriented X3, no focal deficits. Absent: pronater drift, facial droop, speech deficit - Skin Skin exam: Present: dry, intact Internal Med - H&P Results - Labs CBC & Chem 7: 06/26/16 12:45 06/26/16 12:45
[2016-06-26] MEDS ORDERED: Albuterol 2.5 MG/3 ML NEBULIZER IH PRN (20:38)
[2016-06-26] MEDS ORDERED: Naloxone 0.4 MG/ML INJ IVP PRN (20:38)
[2016-06-26] MEDS ORDERED: Fluticasone Propionate Nasal 50 MCG/SPRAY BOTTLE NS PRN (20:43)
[2016-06-26] MEDS: Carbidopa/Levodopa 25/100 TABLET PO SCH (21:36)
[2016-06-26] MEDS: rOPINIRole 1 MG TABLET PO SCH (21:36)
[2016-06-26] MEDS: Acetaminophen 325 MG TABLET PO PRN (21:37)
[2016-06-26] MEDS: 0.9 % Sodium Chloride 1,000 ML IVC SCH (21:37)
[2016-06-27] MEDS: Cefepime HCl 2,000 MG in D5% in Water (Mini-Bag+) 100 ML IVPB SCH ×3 (00:20→15:12)
[2016-06-27] MEDS ORDERED: *HR* HYDROmorphone (PF) 1 MG/ML SYRINGE IVP ONE (00:34)
[2016-06-27 03:10] LABS: Basophils % 0.2 %; Eosinophils # 0.1 K/mcL (0.0-0.6); Eosinophils % 0.7 %; Hematocrit 43.2 % (35.3-44.9); INR 1.1; Immature Granulocytes % 1.1 % (0-4); Lymphocytes # 1.6 K/mcL (0.6-4.6); Lymphocytes % 11.8 %; Mean Corpuscular HGB Conc 32.9 g/dL (31.6-35.5); Mean Corpuscular Hemoglobin 29.6 pg (28.0-33.3); Mean Corpuscular Volume 90.2 fL (83.0-100.0); Mean Platelet Volume 8.1 fL (9.4-12.4); Monocytes # 1.1 K/mcL (0.0-1.3); Monocytes % 7.9 %; Neutrophils # 10.9 K/mcL (1.6-8.9); Platelet Count 185 K/mcL (140-400); Prothrombin Time 12.2 Seconds (9.4-12.1); Red Blood Count 4.79 M/mcL (3.82-4.97); Red Cell Distribution Width 14.2 % (11.5-14.5); Segmented Neutrophils % 78.3 %
[2016-06-27 03:11] LABS: Hemoglobin 14.2 g/dL (11.5-15.4)
[2016-06-27 03:18] LABS: Alanine Aminotransferase 6 Units/L (0-55); Albumin 2.3 g/dL (3.5-5.0); Albumin/Globulin Ratio 0.8 (1.1-2.2); Alkaline Phosphatase 56 Units/L (38-126); Aspartate Amino Transferase 10 Units/L (5-34); BUN/Creatinine Ratio 29 (6-26); Bilirubin,Total 0.9 mg/dL (0.2-1.2); Blood Urea Nitrogen 22 mg/dL (7-20); Calcium 8.1 mg/dL (8.6-10.8); Carbon Dioxide 19 mEq/L (19-29); Chloride 110 mEq/L (98-109); Globulin 2.8 g/dL (2.4-3.5); Glucose 99 mg/dL (70-99); Magnesium 1.5 mg/dL (1.6-2.6); Osmolality,Calculated 283 (280-300); Potassium 3.8 mEq/L (3.5-4.5); Sodium 135 mEq/L (136-145); Total Protein 5.1 g/dL (6.0-8.3); eGFR For African Americans > 60 (> 60); eGFR For Non-African Americans > 60 (> 60)
[2016-06-27] MEDS: Vancomycin 1,500 MG in D5% in Water 250 ML IVPB SCH ×2 (04:49→15:11)
[2016-06-27] MEDS: Acetaminophen 325 MG TABLET PO PRN ×2 (04:49→16:09)
[2016-06-27] MEDS ORDERED: *HR* HYDROmorphone (PF) 1 MG/ML SYRINGE IV ONE (04:59)
[2016-06-27] MEDS: *HR* Heparin 5,000 UNIT/ML VIAL SQ SCH ×2 (05:17→17:38)
[2016-06-27] MEDS: Famotidine 20 MG/2 ML VIAL IVP SCH ×2 (05:17→17:38)
[2016-06-27] MEDS ORDERED: Vancomycin (wt based) 1,000 MG VIAL IV SCH (07:00)
[2016-06-27] MEDS: 0.9 % Sodium Chloride 1,000 ML IVC SCH (08:21)
[2016-06-27] MEDS ORDERED: Aminoglycoside Consult 1 EACH MC ONE (08:30)
[2016-06-27] MEDS: Aspirin 81 MG TAB.CHEW PO SCH (08:37)
[2016-06-27] MEDS: Carbidopa/Levodopa 25/100 TABLET PO SCH ×4 (08:37→21:49)
--- NOTE | 2016-06-27 09:05 | Neurology - Consult Note ---
<Buddy Bernal - Last Filed: 06/27/16 11:10> Date of Encounter: 06/27/16 Time of Encounter: 08:59 Assessment and Plan (1) Syncope Current Visit: Yes Status: Acute Etiology vasovagal vs. orthostatic as patient was on bathroom and had been recently dehydrated as well Echocardiogram has been ordered, results are pending She did have random cortisol and TSH levels checked, both were WNL Agree with continuing home dose ASA and statin Will evaluate orthostatic vital signs Qualifiers: Syncope type: vasovagal syncope Qualified Code(s): R55 - Syncope and collapse History of Present Illness Chief complaint: syncope HPI: Ms. Alvarez is a 65 year old female who presents with syncopal episode that occurred yesterday morning. She states this occurred roughly at 10 AM, 2 hours after she had woken up, where she tried to go to the bathroom and thought she needed to urinate and have a bowel movement. She was unsuccessful and became generally weak and when she got up to walk back to her bedroom she suddenly lost consciousness and fell. She lives at home with her who was in another room and did not witness the event. However, she states she was not on the ground for more than a few minutes and when she regained consciousness she had a slight headache and had hurt her left shoulder and had sore right ribs. She denied ever having previous episodes in the past or any current visual changes, focal weakness, loss of sensation, incontinence, chest pain, or shortness of breath. Of note, she does have significant cardiopulmonary disease including COPD on nocturnal oxygen, previous SC requiring 2 stents, thoracic aortic aneurysm, and HTN. She was also recently treated as an outpatient 2 weeks ago with bronchitis and had completed a 5 day course of Zpak and steroids. Past Med Surg Social Fam HX - Past Medical History Medical history: aortic aneurysm, COPD, myocardial infarction, other Psychiatric history: anxiety - Past Surgical History Surgical History: breast surgery, coronary bypass (CABG) - Social History Smoking Status: Current every day smoker Smokeless Tobacco Status: No Alcohol use: none Drug use: none Medications and Allergies Albuterol Neb [Proventil Neb] 2.5 mg IH QID PRN 06/26/16 [History] Alprazolam [Xanax 0.5 MG Tablet] 0.5 mg PO BID PRN 06/26/16 [History] Aspirin 81 mg PO DAILY 06/26/16 [History] Atorvastatin [Lipitor] 40 mg PO HS 06/26/16 [History] Carbidopa/Levodopa 25/100 [Sinemet 25/100] 1 each PO QID 06/26/16 [History] Fluticasone Propionate Nasal [Flonase] 50 mcg NS DAILY PRN 06/26/16 [History] HYDROcodone/Acet 5/325 mg [[place] 5-325 mg] 1 tab PO Q8H PRN 06/26/16 [History] Metoprolol XL (24 HR) Succ [Toprol XL] 50 mg PO DAILY 06/26/16 [History] Nitroglycerin [Nitrostat] 0.4 mg SL Q5M PRN 06/26/16 [History] Oxygen 2 l NS AD 06/26/16 [History] Pantoprazole Sodium [Protonix] 40 mg PO DAILY 06/26/16 [History] Potassium Chloride [K-Tab ER] 20 meq PO DAILY 06/26/16 [History] Ropinirole HCl [Requip] 0.5 mg PO HS 06/26/16 [History] Sertraline [Zoloft] 50 mg PO DAILY 06/26/16 [History] Allergies Cyclobenzaprine Allergy (Verified 06/17/16 21:10) Agitated levofloxacin [From Levaquin] Allergy (Verified 06/17/16 21:10) See Comments unsure morphine Allergy (Verified 06/17/16 21:10) Rash amitriptyline Adverse Reaction (Verified 06/17/16 21:10) See Comments makes her nervous fentanyl Adverse Reaction (Verified 06/17/16 21:10) Itching ondansetron [From Zofran (as hydrochloride)] Adverse Reaction (Verified 21:10) Itching All Systems: A 10-system review of systems was performed and is negative for pertinent findings except as documented above in the HPI. - Constitutional Constitutional ROS IM: headache(s), weakness (generalized), no fever(s), no frequent falls - Nose, Mouth, Throat Nose, mouth and throat: no abnormal hearing, no dysphagia - Cardiovascular Cardiovascular ROS IM: lightheadedness, syncope, no chest pain, no edema, no irregular heart rhythm, no palpitations - Respiratory Respiratory IM: no dyspnea, no wheezing, no excessive phlegm production, no change in phlegm color - Gastrointestinal Gastrointestinal: constipation, no abdominal pain, no diarrhea, no nausea, no vomiting - Genitourinary Genitourinary ROS: no dysuria, no flank pain, no hematuria - Musculoskeletal Musculoskeletal ROS IM: no muscle cramps, no muscle weakness, no numbness, no tingling - Neurological Neurological ROS: headache(s), syncope, no abnormal hearing, no confusion, no disequilibrium, no focal weakness, no frequent falls Physical Examination - Vital Signs Vital Signs: Initial Vital Signs Temp Pulse Resp BP Pulse Ox 97.6 F 64 18 61/30 98 06/26/16 12:34 06/26/16 12:34 06/26/16 12:34 06/26/16 12:34 06/26/16 12:34 - Constitutional General appearance: comfortable - Neurologic Sensorimotor examination: intact Motor examination - right side: 5/5: deltoids, biceps, triceps, firer retort, hip flexors, quadriceps Motor examination - left side: 5/5: hip flexors, firer retort, quadriceps Detailed sensory examination: intact Reflex and gait examination: intact Reflexes: Biceps: 2+, Patella: 2+ Mental Status Examination: awake, alert, oriented to person, oriented to place, oriented to time, follows commands appropriately, answers questions appropriately, no agnosia, no aphasia, no aproxia Cranial nerve examination: PERRL, EOMI, visual anderson intact, corneal reflexes brisk symmetrically, sensory to face intact, mastication intact, no facial asymmetry is present, no dysarthria, hearing is intact symmetrically, soft palate elevates bilaterally upon phonation, gag reflex intact, flexes SCM and trapezius muscles symmetrically with full power, tongue protrudes midline, no atrophy or facial fasiculations present Cerebellar examination: no dysmetria, performs finger to nose and heel to vargas symmetrically without ataxia, no gait ataxia, no truncal ataxia, no difficulty with rapid alternating movements Results - Laboratory Findings CBC and BMP: 06/27/16 02:56 06/27/16 02:56 Abnormal lab findings: Abnormal lab results WBC 13.9 K/mcL (4.3-11.1) H 06/27/16 02:56 MPV 8.1 fL (9.4-12.4) L 06/27/16 02:56 Neutrophils # 10.9 K/mcL (1.6-8.9) H 06/27/16 02:56 PT 12.2 Seconds (9.4-12.1) H 06/27/16 02:56 APTT 23.2 Seconds (26.0-36.0) L 06/26/16 12:45 Sodium 135 mEq/L (136-145) L 06/27/16 02:56 Chloride 110 mEq/L (98-109) H 06/27/16 02:56 BUN 22 mg/dL (7-20) H 06/27/16 02:56 BUN/Creatinine Ratio 29 (6-26) H 06/27/16 02:56 Calcium 8.1 mg/dL (8.6-10.8) L 06/27/16 02:56 Magnesium 1.5 mg/dL (1.6-2.6) L 06/27/16 02:56 B-Natriuretic Peptide 142 pg/mL (0-100) H 06/27/16 02:56 Serum Total Protein 5.1 g/dL (6.0-8.3) L 06/27/16 02:56 Albumin 2.3 g/dL (3.5-5.0) L 06/27/16 02:56 Albumin/Globulin Ratio 0.8 (1.1-2.2) L 06/27/16 02:56 Urine Blood Small (Negative) H 06/26/16 13:57 Urine Microscopic RBC 5-15 per hpf (0-3) H 06/26/16 13:57 Ur Squamous Epith Cells Many per lpf (None-Few) H 06/26/16 13:57 Consult Discharge Plan - Plan Referrals: Ryder Grant MD [Primary Care Provider] - 07/06/16 2:40 pm () <Faizan Garcia - Last Filed: 06/27/16 16:16> Time of Encounter: 16:08 Assessment and Plan (1) Syncope Current Visit: Yes Status: Acute I agree that we are likely dealing with a vasovagal episode perhaps complicated by dehydration. No focal deficits present on neuro exam. Not suspicious of seizure or VBI. Will reevaluate at your discretion. Qualifiers: Syncope type: vasovagal syncope Qualified Code(s): R55 - Syncope and collapse History of Present Illness HPI: Ms. Alvarez is a 65 year old female seen for neurologic consultation due to loss of consciousness. The patient was seen and examined independently. The case was discussed with Dr. Bernal. I agree with his history as stated above. All Systems: A 10-system review of systems was performed and is negative for pertinent findings except as documented above in the HPI. Review of Systems: 10 point ROS is consistent with the HPI and otherwise negative. Physical Examination - Vital Signs Vital Signs: Initial Vital Signs Temp Pulse Resp BP Pulse Ox 97.6 F 64 18 61/30 98 06/26/16 12:34 06/26/16 12:34 06/26/16 12:34 06/26/16 12:34 06/26/16 12:34 - Neurologic Detailed motor examination: other (Left arm in a sling. Normal left firer retort strength.) Results - Laboratory Findings CBC and BMP: 06/27/16 02:56 06/27/16 02:56 Abnormal lab findings: Abnormal lab results WBC 13.9 K/mcL (4.3-11.1) H 06/27/16 02:56 MPV 8.1 fL (9.4-12.4) L 06/27/16 02:56 Neutrophils # 10.9 K/mcL (1.6-8.9) H 06/27/16 02:56 PT 12.2 Seconds (9.4-12.1) H 06/27/16 02:56 APTT 23.2 Seconds (26.0-36.0) L 06/26/16 12:45 Sodium 135 mEq/L (136-145) L 06/27/16 02:56 Chloride 110 mEq/L (98-109) H 06/27/16 02:56 BUN 22 mg/dL (7-20) H 06/27/16 02:56 BUN/Creatinine Ratio 29 (6-26) H 06/27/16 02:56 Calcium 8.1 mg/dL (8.6-10.8) L 06/27/16 02:56 Magnesium 1.5 mg/dL (1.6-2.6) L 06/27/16 02:56 B-Natriuretic Peptide 142 pg/mL (0-100) H 06/27/16 02:56 Serum Total Protein 5.1 g/dL (6.0-8.3) L 06/27/16 02:56 Albumin 2.3 g/dL (3.5-5.0) L 06/27/16 02:56 Albumin/Globulin Ratio 0.8 (1.1-2.2) L 06/27/16 02:56 Urine Blood Small (Negative) H 06/26/16 13:57 Urine Microscopic RBC 5-15 per hpf (0-3) H 06/26/16 13:57 Ur Squamous Epith Cells Many per lpf (None-Few) H 06/26/16 13:57
[2016-06-27] MEDS: *HR* HYDROcodone/Acet 5/325 mg TABLET PO PRN ×3 (11:34→23:48)
--- NOTE | 2016-06-27 12:50 | Internal Med Progress Note ---
Date of Encounter: 06/27/16 Time of Encounter: 16:08 - Assessment and plan (1) Syncope Current Visit: Yes Status: Acute Qualifiers: Syncope type: vasovagal syncope Qualified Code(s): R55 - Syncope and collapse (2) Leukocytosis Current Visit: Yes Status: Acute Qualifiers: Leukocytosis type: other Qualified Code(s): D72.828 - Other elevated white blood cell count (3) Hypotension Current Visit: Yes Status: Acute Qualifiers: Hypotension type: unspecified hypotension type Qualified Code(s): I95.9 - Hypotension, unspecified (4) Obesity Current Visit: Yes Status: Acute Qualifiers: Obesity type: unspecified obesity type Obesity severity: unspecified obesity severity Qualified Code(s): E66.9 - Obesity, unspecified (5) History of aortic aneurysm Current Visit: Yes Status: Acute Assessment and plan: 65 year old female with PMH of COPD on LTOT, obesity, attention, aortic aneurysm , tremors admitted followin a syncopal epsode. Patient ahd te sepsiode following a bowel movement Appears to be vasovagal. Echo pending. Syncope: Appears to be vasovagal episode from hx. BP was soft on admission. On IV fluids. Echo from 2015 reviewed, negative for any significnat valvular pathology. Hypotension: No evidence of infection. Likely dehydration, on IV fluids. d/c antibiotics. Leukocytosis: was on steroids prior to admission. No e/o nfection. Will d/c antibiotics and monitor. Recent bronchitis: was on oupt treatment with steroids. Improved. Continue bronchodilator tx. Imaging negative for any penumonia. h/o aortic anuerysm: No acute issues Obesity: To be addressed as outpt. h/o COPD: continue bronchodialtors. Not in exacerbation DVT Prophylaxis - Time Spent With Patient 25 - 35 minutes - Subjective Interval history: andres dn examined at bedside. No further syncopal episodes since admission. Denies any chest pain, palpitations - Constitutional Vitals: Temp Pulse Resp BP Pulse Ox 98.2 F 86 16 121/93 91 L 06/27/16 11:03 06/27/16 12:28 06/27/16 11:03 06/27/16 11:03 06/27/16 11:03 General appearance: Present: A&O X 3, pleasant, no acute distress, obese - Head Head exam: Present: atraumatic, normocephalic - Eye Eye exam: Present: PERRL, conjuntiva pink, sclera anicteric Pupils: Present: PERRL - Neck Neck exam general surgery: Present: supple, trachea midline. Absent: lymphadenopathy - Respiratory Respiratory exam: Present: CTAB. Absent: accessory muscle use, rales, rhonchi, wheezes - Cardiovascular Cardiovascular exam: Present: RRR, +S1, +S2. Absent: diastolic murmur, gallop, rubs, systolic murmur - GI/Abdominal GI/Abdominal exam: Present: normal bowel sounds, soft, no peritoneal signs. Absent: distended, tenderness - Extremities Exam Extremities exam: Present: warm, radial pulses palpable and symetrical. Absent : calf tenderness, cyanotic, pedal edema - Neurological Exam Neurological exam: Present: CN II-XII intact, oriented X3, no focal deficits. Absent: pronater drift, facial droop, speech deficit - Skin Skin exam: Present: dry, intact Internal Medicine: Result - Labs CBC & Chem 7: 06/27/16 02:56 06/27/16 02:56 Labs: Short CBC 06/27/16 Range/Units 02:56 WBC 13.9 H (4.3-11.1) K/mcL Hgb 14.2 D (11.5-15.4) g/dL Hct 43.2 (35.3-44.9) % Plt Count 185 (140-400) K/mcL Neutrophils # 10.9 H (1.6-8.9) K/mcL BMP 06/27/16 02:56 Sodium 135 L Potassium 3.8 Chloride 110 H Carbon Dioxide 19 BUN 22 H Creatinine 0.75 Glucose 99 Calcium 8.1 L Cardiac Enzymes 06/26/16 06/27/16 Range/Units 21:14 02:56 Troponin I 0.00 0.00 (0-0.03) ng/mL Liver Function 06/27/16 Range/Units 02:56 Total Bilirubin 0.9 (0.2-1.2) mg/dL AST 10 (5-34) Units/L ALT 6 (0-55) Units/L Alkaline Phosphatase 56 (38-126) Units/L Albumin 2.3 L (3.5-5.0) g/dL - ABG Interpretation ABG results: PT/INR, D-dimer PT 12.2 Seconds (9.4-12.1) H 06/27/16 02:56 - Impressions Impressions Clavicle X-Ray 06/27/16 00:35 IMPRESSION: Nondisplaced distal left clavicle shaft fracture. D/ / Chad Calvillo MD / Chad Calvillo MD Interpreting Provider: Chad Calvillo MD Consult Discharge Plan - Plan Referrals: Ryder Grant MD [Primary Care Provider] - 07/06/16 2:40 pm ()
--- NOTE | 2016-06-27 15:36 | ECHO - Doppler Report ---
Echocardiogram Name: Carol Alvarez Date of Study: 06/27/2016 Date: 1950 Ht: 66.0 in Medical Record#: [id number] Age: 65 Wt: 202.0 lb Gender: Female BSA: 2.01 Order #: [id number] Location: [facility] Room #: 2N09 Reading Physician: Faizan Guzman MD, [facility] Law Professor: Anna Marie Dumont RVT Ordering Physician: Lebron Munoz MD Primary Physician: Ryder Grant MD Indications: Syncope Impressions: Technically sub-optimal due to poor echocardiographic windows. Normal LV systolic function, LVEF 65%. Mild left ventricular diastolic dysfunction. Normal right ventricular size and function. No significant valvular dysfunction. Unable to estimate RVSP due to lack of TR jet. Left Ventricular Wall Motion: Rest Echo Findings All wall segments showed normal motion. Findings: Study Quality * Technically sub-optimal due to poor echocardiographic windows. ECG Findings * Sinus rhythm with PVCs. Left Ventricle * Normal LV systolic function, LVEF 65%. * Normal LV chamber size and wall thickness. * Mild left ventricular diastolic dysfunction. Right Ventricle * Normal right ventricular size and function. Left Atrium * Normal left atrial size. Right Atrium * Normal right atrial size. Aorta * Normally sized aortic root. Pericardium * There is no pericardial effusion present. IVC * The IVC is not dilated. Aortic Valve * Aortic valve not well visualized. * No aortic stenosis. * No aortic regurgitation. Mitral Valve * Mild-moderate mitral annular calcification * No mitral stenosis. * No mitral regurgitation. Tricuspid Valve * Tricuspid valve not well visualized. * No tricuspid stenosis. * Trace tricuspid regurgitation. * Unable to estimate RVSP due to lack of TR jet. Pulmonic Valve * Pulmonic valve not well visualized. * No pulmonic stenosis. * Trace pulmonic regurgitation. History Hypertension Hypercholesteremia Family History of CAD History of CAD/PTCA Myocardial Infarction Congestive Heart Failure 12/29/2014 a Previous Echo was performed. Measurements: BP: 121/ 93 2D Normal Values RVIDd: 3.00 cm IVSd: 1.00 cm 0.6 - 1.0 cm LVIDd: 4.80 cm 3.7 - 5.6 cm LVPWd: .90 cm 0.6 - 1.1 cm LVIDs: 3.40 cm 1.5 - 3.6 cm AO: 2.90 cm < 4.0 cm LA volume: 44 Mitral Valve Peak E:.87 m/sec Peak A:1.08 m/sec E/A Ratio:0.8 Updated by Faizan Guzman MD, [facility] on 06/27/2016 3:32:06 PM electronically signed on 06/27/2016 3:32:31 PM with status of Final Wall Motion Jiang: 1=Normal, 2=Hypokinesis, 3=Akinesis, 4=Dyskinesis, 5=Aneurysmal, 6=Hyperkinetic, X=Not Visualized (Blank)=Missing
[2016-06-27] MEDS: rOPINIRole 1 MG TABLET PO SCH (21:49)
[2016-06-28] MEDS ORDERED: Magnesium Sulfate 2 GM in D5% in Water 100 ML IVPB ONE (04:03)
[2016-06-28] MEDS ORDERED: *HR* Metoprolol 5 MG/5 ML VIAL IVP PRN (04:11)
[2016-06-28] MEDS: *HR* HYDROcodone/Acet 5/325 mg TABLET PO PRN ×4 (04:34→20:17)
[2016-06-28] MEDS: Famotidine 20 MG/2 ML VIAL IVP SCH (05:31)
[2016-06-28] MEDS: *HR* Heparin 5,000 UNIT/ML VIAL SQ SCH ×2 (05:31→17:16)
[2016-06-28 05:47] LABS: Basophils % 0.2 %; Eosinophils # 0.1 K/mcL (0.0-0.6); Eosinophils % 0.6 %; Hemoglobin 14.4 g/dL (11.5-15.4); Immature Granulocytes % 0.9 % (0-4); Lymphocytes # 1.4 K/mcL (0.6-4.6); Lymphocytes % 9.4 %; Mean Corpuscular HGB Conc 32.7 g/dL (31.6-35.5); Mean Corpuscular Volume 88.7 fL (83.0-100.0); Mean Platelet Volume 8.3 fL (9.4-12.4); Monocytes # 1.2 K/mcL (0.0-1.3); Monocytes % 8.1 %; Platelet Count 199 K/mcL (140-400); Red Blood Count 4.96 M/mcL (3.82-4.97); Red Cell Distribution Width 14.2 % (11.5-14.5); Segmented Neutrophils % 80.8 %
[2016-06-28 05:54] LABS: VBG HCO3 20.9 mEq/L (21-27); VBG PH 7.48 pH Units (7.32-7.42)
[2016-06-28 06:11] LABS: BUN/Creatinine Ratio 18 (6-26); Blood Urea Nitrogen 12 mg/dL (7-20); Calcium 8.8 mg/dL (8.6-10.8); Carbon Dioxide 20 mEq/L (19-29); Chloride 110 mEq/L (98-109); Glucose 114 mg/dL (70-99); Magnesium 1.9 mg/dL (1.6-2.6); Osmolality,Calculated 283 (280-300); Phosphorous 3.1 mg/dL (2.3-4.7); Potassium 3.7 mEq/L (3.5-4.5); Sodium 136 mEq/L (136-145); eGFR For African Americans > 60 (> 60); eGFR For Non-African Americans > 60 (> 60)
--- NOTE | 2016-06-28 07:38 | Electrocardiograph Report ---
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
--- NOTE | 2016-06-28 07:42 | Electrocardiograph Report ---
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
[2016-06-28] MEDS: Aspirin 81 MG TAB.CHEW PO SCH (08:52)
[2016-06-28] MEDS: Carbidopa/Levodopa 25/100 TABLET PO SCH ×4 (08:52→20:17)
--- NOTE | 2016-06-28 12:43 | Internal Med Progress Note ---
Date of Encounter: 06/28/16 Time of Encounter: 12:05 - Assessment and plan (1) Clavicle fracture, shaft Current Visit: Yes Status: Acute Qualifiers: Encounter type: initial encounter Fracture type: closed Fracture alignment: nondisplaced Laterality: left Qualified Code(s): S42.025A - Nondisplaced fracture of shaft of left clavicle, initial encounter for closed fracture (2) Syncope Current Visit: Yes Status: Acute Qualifiers: Syncope type: vasovagal syncope Qualified Code(s): R55 - Syncope and collapse (3) Leukocytosis Current Visit: Yes Status: Acute Qualifiers: Leukocytosis type: other Qualified Code(s): D72.828 - Other elevated white blood cell count (4) Hypotension Current Visit: Yes Status: Acute Qualifiers: Hypotension type: unspecified hypotension type Qualified Code(s): I95.9 - Hypotension, unspecified (5) Obesity Current Visit: Yes Status: Acute Qualifiers: Obesity type: unspecified obesity type Obesity severity: unspecified obesity severity Qualified Code(s): E66.9 - Obesity, unspecified (6) History of aortic aneurysm Current Visit: Yes Status: Acute Assessment and plan: 65 year old female with PMH of COPD on LTOT, obesity, attention, aortic aneurysm , tremors admitted followin a syncopal epsode. Patient ahd te sepsiode following a bowel movement Appears to be vasovagal. Echo pending. Syncope: Likely Vasovagal, no further episodes reported. Repeat 2D echo: LVEF 65 %, normal LV systolic function, mild LV diastolic dysfunction, no significant valvular dysfunction reported. Hypotension: Improved, will continue to monitor. No evidence of infection. Likely dehydration, on IV fluids. Leukocytosis: was on steroids prior to admission. No signs of infection. Recent bronchitis: was on outpt treatment with steroids. Improved. Continue bronchodilator tx. Imaging negative for any penumonia. h/o aortic anuerysm: No acute issues Obesity: To be addressed as outpt. h/o COPD: continue bronchodialtors. Not in exacerbation DVT Prophylaxis Lt Clavicular Fracture: Awaiting orthopedic consultation. PT/OT eval - Subjective Interval history: Patient seen and examined at bedside. Resting comfortably in bed and denies any dizziness,weakness, lightheadedness at this time. Denies any syncopal episodes since hospitalization. Reports of pain in left arm at the site of fracture. No overnight events reported. - Constitutional Vitals: Temp Pulse Resp BP Pulse Ox 97.3 F L 85 18 104/59 92 L 06/28/16 11:15 06/28/16 11:15 06/28/16 11:15 06/28/16 11:15 06/28/16 11:15 General appearance: Present: A&O X 3, pleasant, no acute distress, obese - Head Head exam: Present: atraumatic, normocephalic - Eye Eye exam: Present: conjuntiva pink, sclera anicteric - Respiratory Respiratory exam: Present: CTAB. Absent: accessory muscle use, rales, rhonchi, wheezes - Cardiovascular Cardiovascular exam: Present: RRR, +S1, +S2. Absent: diastolic murmur, gallop, rubs, systolic murmur - GI/Abdominal GI/Abdominal exam: Present: normal bowel sounds, soft, no peritoneal signs. Absent: distended, tenderness - Extremities Exam Extremities exam: Present: warm, radial pulses palpable and symetrical (left arm in sling). Absent: calf tenderness, cyanotic, pedal edema - Neurological Exam Neurological exam: Present: alert, oriented X3 - Psychiatric Psychiatric exam: Present: normal affect, normal mood Internal Medicine: Result - Labs CBC & Chem 7: 06/28/16 05:30 06/28/16 05:30 Labs: Short CBC 06/28/16 Range/Units 05:30 WBC 14.9 H (4.3-11.1) K/mcL Hgb 14.4 (11.5-15.4) g/dL Hct 44.0 (35.3-44.9) % Plt Count 199 (140-400) K/mcL Neutrophils # 12.0 H (1.6-8.9) K/mcL BMP 06/28/16 05:30 Sodium 136 Potassium 3.7 Chloride 110 H Carbon Dioxide 20 BUN 12 D Creatinine 0.68 Glucose 114 H Calcium 8.8 Cardiac Enzymes 06/28/16 Range/Units 05:30 Troponin I 0.00 (0-0.03) ng/mL - ABG Interpretation ABG results: PT/INR, D-dimer PT 12.2 Seconds (9.4-12.1) H 06/27/16 02:56 - Impressions Impressions Clavicle X-Ray 06/27/16 00:35 IMPRESSION: Nondisplaced distal left clavicle shaft fracture. D/ / Chad Calvillo MD / Chad Calvillo MD Interpreting Provider: Chad Calvillo MD Consult Discharge Plan - Plan Referrals: Ryder Grant MD [Primary Care Provider] - 07/06/16 2:40 pm ()
[2016-06-28] MEDS: ALPRAZolam 0.5 MG TABLET PO PRN (14:23)
[2016-06-28] MEDS: Famotidine 20 MG TABLET PO SCH (17:16)
[2016-06-28] MEDS: Sennosides/Docusate Sodium TABLET PO PRN (17:20)
[2016-06-28] MEDS: rOPINIRole 1 MG TABLET PO SCH (20:17)
--- NOTE | 2016-06-28 20:58 | Electrocardiograph Report ---
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
[2016-06-29] MEDS: *HR* HYDROcodone/Acet 5/325 mg TABLET PO PRN ×4 (00:24→16:24)
[2016-06-29] MEDS: ALPRAZolam 0.5 MG TABLET PO PRN ×2 (04:02→09:18)
[2016-06-29] MEDS: Famotidine 20 MG TABLET PO SCH (05:20)
[2016-06-29] MEDS: *HR* Heparin 5,000 UNIT/ML VIAL SQ SCH (05:20)
[2016-06-29 05:21] LABS: Basophils % 0.3 %; Eosinophils # 0.2 K/mcL (0.0-0.6); Eosinophils % 1.6 %; Hematocrit 40.8 % (35.3-44.9); Hemoglobin 13.5 g/dL (11.5-15.4); Immature Granulocytes % 0.6 % (0-4); Mean Corpuscular HGB Conc 33.1 g/dL (31.6-35.5); Mean Corpuscular Hemoglobin 29.7 pg (28.0-33.3); Mean Corpuscular Volume 89.7 fL (83.0-100.0); Mean Platelet Volume 8.4 fL (9.4-12.4); Monocytes % 8.8 %; Neutrophils # 7.9 K/mcL (1.6-8.9); Platelet Count 190 K/mcL (140-400); Red Blood Count 4.55 M/mcL (3.82-4.97); Red Cell Distribution Width 14.4 % (11.5-14.5); Segmented Neutrophils % 70.7 %
[2016-06-29 06:32] LABS: BUN/Creatinine Ratio 22 (6-26); Blood Urea Nitrogen 14 mg/dL (7-20); Calcium 8.7 mg/dL (8.6-10.8); Carbon Dioxide 22 mEq/L (19-29); Chloride 107 mEq/L (98-109); Glucose 93 mg/dL (70-99); Osmolality,Calculated 282 (280-300); Phosphorous 2.8 mg/dL (2.3-4.7); Potassium 3.6 mEq/L (3.5-4.5); Sodium 136 mEq/L (136-145); eGFR For African Americans > 60 (> 60); eGFR For Non-African Americans > 60 (> 60)
--- NOTE | 2016-06-29 08:16 | Electrocardiograph Report ---
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
[2016-06-29] MEDS: Sennosides/Docusate Sodium TABLET PO PRN (09:19)
[2016-06-29] MEDS: Aspirin 81 MG TAB.CHEW PO SCH (09:20)
[2016-06-29] MEDS: Carbidopa/Levodopa 25/100 TABLET PO SCH ×2 (09:20→12:47)
[2016-06-29 11:39] VITALS: BP 105/60
--- NOTE | 2016-06-29 15:17 | Discharge Summary ---
Date of Encounter: 06/28/16 Time of Encounter: 11:15 - Discharge Diagnosis (1) Clavicle fracture, shaft Priority: Secondary Status: Acute Qualifiers: Encounter type: initial encounter Fracture type: closed Fracture alignment: nondisplaced Laterality: left Qualified Code(s): S42.025A - Nondisplaced fracture of shaft of left clavicle, initial encounter for closed fracture (2) Syncope Priority: Primary Status: Acute Qualifiers: Syncope type: vasovagal syncope Qualified Code(s): R55 - Syncope and collapse (3) Leukocytosis Priority: Secondary Status: Resolved Qualifiers: Leukocytosis type: other Qualified Code(s): D72.828 - Other elevated white blood cell count (4) Hypotension Priority: Secondary Status: Resolved Qualifiers: Hypotension type: unspecified hypotension type Qualified Code(s): I95.9 - Hypotension, unspecified (5) Obesity Priority: Secondary Status: Chronic Qualifiers: Obesity type: unspecified obesity type Obesity severity: unspecified obesity severity Qualified Code(s): E66.9 - Obesity, unspecified (6) History of aortic aneurysm Priority: Secondary Status: Chronic - Discharge Medications Prescriptions: HYDROcodone/Acet 5/325 mg [[place] 5-325 mg] 1 tab PO Q8H PRN #20 tablet PRN Reason: Pain Sennosides/Docusate Sodium [Senna Plus] 2 each PO BID PRN #30 tablet PRN Reason: Constipation Home Medications: Albuterol Neb [Proventil Neb] 2.5 mg IH QID PRN 06/26/16 [History] Alprazolam [Xanax 0.5 MG Tablet] 0.5 mg PO BID PRN 06/26/16 [History] Aspirin 81 mg PO DAILY 06/26/16 [History] Atorvastatin [Lipitor] 40 mg PO HS 06/26/16 [History] Carbidopa/Levodopa 25/100 [Sinemet 25/100] 1 each PO QID 06/26/16 [History] Fluticasone Propionate Nasal [Flonase] 50 mcg NS DAILY PRN 06/26/16 [History] Nitroglycerin [Nitrostat] 0.4 mg SL Q5M PRN 06/26/16 [History] Oxygen 2 l NS AD 06/26/16 [History] Pantoprazole Sodium [Protonix] 40 mg PO DAILY 06/26/16 [History] Potassium Chloride [K-Tab ER] 20 meq PO DAILY 06/26/16 [History] Ropinirole HCl [Requip] 0.5 mg PO HS 06/26/16 [History] Sertraline [Zoloft] 50 mg PO DAILY 06/26/16 [History] HYDROcodone/Acet 5/325 mg [[place] 5-325 mg] 1 tab PO Q8H PRN #20 tablet 06/29/16 [Rx] Sennosides/Docusate Sodium [Senna Plus] 2 each PO BID PRN #30 tablet 06/29/16 [ Rx] Allergies/Adverse Reactions: Allergies Cyclobenzaprine Allergy (Verified 06/17/16 21:10) Agitated levofloxacin [From Levaquin] Allergy (Verified 06/17/16 21:10) See Comments unsure morphine Allergy (Verified 06/17/16 21:10) Rash amitriptyline Adverse Reaction (Verified 06/17/16 21:10) See Comments makes her nervous fentanyl Adverse Reaction (Verified 06/17/16 21:10) Itching ondansetron [From Zofran (as hydrochloride)] Adverse Reaction (Verified 21:10) Itching Procedures/tests Complete & Pending: Procedures Performed prior 72 hours Category Date Time Status ECG 12 lead ECG [ECG] Routine Y 06/28/16 03:10 Completed ECG 12 lead ECG [ECG] Routine Y 06/28/16 10:50 Completed ECG 12 lead ECG [ECG] Routine Y 06/28/16 10:50 Completed EV echocardiogram Routine Y 06/27/16 20:41 Completed Date of admission: 06/26/16 20:38 Primary care physician: Ryder Grant MD Consults: 06/27/16 07:00 Consult to Neurology [CONS] Routine Consulting Provider: Neurology [facility] Reason for Consult: syncope Call Completed: No Consult to Orthopedic Surgery [CONS] Routine Consulting Provider: Orthopedics [facility] Reason for Consult: L clavicle fracture Call Completed: No 06/28/16 12:46 Consult to Occupational Therapy [CONS] Routine Comment: Evaluate, develop and implement POC Consult to Physical Therapy [CONS] Routine Comment: Evaluate, develop and implement POC Discharging clinician: Ella Gibbs Anticipated date of discharge: 06/29/16 - Patient Status Disposition: Home Health Service Condition: Undetermined Functional capacity at discharge: independent ambulation Overall status at discharge: patient is back to baseline - Discharge Instructions Follow Up With: Ramiro Payne DO [Non-Partnered Physician] - 07/05/16 9:15 am Ryder Grant MD [Primary Care Provider] - 07/06/16 2:40 pm () Additional Instructions: Please follow up with your primary care physician and orthopedic surgery (Dr. Payne) within one week after your discharge from the hospital. You were noted to have low blood pressure throughout your hospital admission, due to which your home dose of Metoprolol was placed on hold. Please continue to hold this medication after discharge and closely monitor your blood pressure. If you are noted to have BP >150/90, restart your home dose of Metoprolol. Please resume all your other home medications as prescribed by your primary care physician. Please continue to immobolize your left arm and keep left arm splint in place. - Diet and Activity Activity: as per physical therapy Diet: advance to your usual diet Hospital course: Ms. Alvarez is a 65 year old female with PMH of COPD on LTOT, obesity, aortic aneurysm, tremors, hypertension, CAD who was admitted for evaluation of a syncopal episode. Patient presented after a fall and syncope to the hospital and was also noted to have left nondisplaced clavicle shaft fracture. Patient underwent syncope work up and all cardiac etiologies were ruled out. She was also seen by neurology and her syncope was contributed to a vasovagal episode. She was also noted to be hypotensive due to which her home antihypertensives were placed on hold with improvement in her BP. Dr. Payne was consulted for management of the left clavicle shaft fracture. As per Dr. Payne, patient can be seen as outpatient and does not need any acute surgical intervention at this time. She is hemodynamically stable and ambulating well around the room. She was evaluated by physical therapy and home health was recommended. At this time patient is stable for discharge. She will be discharged to home with follow up with PCP and ortho. - Time Spent with Patient Total time spent providing and/or coordinating discharge services: Greater than 30 minutes - Constitutional Vitals: Temp Pulse Resp BP Pulse Ox 97.6 F 94 18 105/60 94 L 06/29/16 12:00 06/29/16 12:00 06/29/16 12:00 06/29/16 12:00 06/29/16 12:00 General appearance: Present: A&O X 3, pleasant, no acute distress, obese - Head Head exam: Present: atraumatic, normocephalic - Eye Eye exam: Present: PERRL, conjuntiva pink, sclera anicteric - Respiratory Respiratory exam: Present: CTAB. Absent: accessory muscle use, rales, rhonchi, wheezes - Cardiovascular Cardiovascular exam: Present: RRR, +S1, +S2. Absent: diastolic murmur, gallop, rubs, systolic murmur - GI/Abdominal GI/Abdominal exam: Present: normal bowel sounds, soft, no peritoneal signs. Absent: distended, tenderness - Extremities Exam Extremities exam: Present: warm. Absent: calf tenderness, pedal edema, radial pulses palpable and symetrical - Neurological Exam Neurological exam: Present: alert, oriented X3, no focal deficits. Absent: pronater drift, facial droop, speech deficit - Psychiatric Psychiatric exam: Present: normal affect, normal mood
--- NOTE | 2016-06-29 15:29 | Physician Discharge Referral ---
Home Health/Hosp Referral Info Transfer to: Home Health Provider in Charge Post Discharge: PCP - Diagnosis (1) Clavicle fracture, shaft Priority: Secondary Status: Acute (2) Syncope Priority: Primary Status: Acute (3) Leukocytosis Priority: Secondary Status: Resolved (4) Hypotension Priority: Secondary Status: Resolved (5) Obesity Priority: Secondary Status: Chronic (6) History of aortic aneurysm Priority: Secondary Status: Chronic - Respiratory Orders Oxygen / L per min Smoking Cessation: Smoking cessation has been advised. For more information, call the [place] Tobacco Quit Line at 0-495-RDDB-NOW. - Services Needed Following services are medically necessary services: Nursing, Home Health Aide, Physical Therapy, Occupational Therapy - Transfer Medications Prescriptions: HYDROcodone/Acet 5/325 mg [[place] 5-325 mg] 1 tab PO Q8H PRN #20 tablet PRN Reason: Pain Sennosides/Docusate Sodium [Senna Plus] 2 each PO BID PRN #30 tablet PRN Reason: Constipation Home Medications: Albuterol Neb [Proventil Neb] 2.5 mg IH QID PRN 06/26/16 [History] Alprazolam [Xanax 0.5 MG Tablet] 0.5 mg PO BID PRN 06/26/16 [History] Aspirin 81 mg PO DAILY 06/26/16 [History] Atorvastatin [Lipitor] 40 mg PO HS 06/26/16 [History] Carbidopa/Levodopa 25/100 [Sinemet 25/100] 1 each PO QID 06/26/16 [History] Fluticasone Propionate Nasal [Flonase] 50 mcg NS DAILY PRN 06/26/16 [History] Nitroglycerin [Nitrostat] 0.4 mg SL Q5M PRN 06/26/16 [History] Oxygen 2 l NS AD 06/26/16 [History] Pantoprazole Sodium [Protonix] 40 mg PO DAILY 06/26/16 [History] Potassium Chloride [K-Tab ER] 20 meq PO DAILY 06/26/16 [History] Ropinirole HCl [Requip] 0.5 mg PO HS 06/26/16 [History] Sertraline [Zoloft] 50 mg PO DAILY 06/26/16 [History] HYDROcodone/Acet 5/325 mg [[place] 5-325 mg] 1 tab PO Q8H PRN #20 tablet 06/29/16 [Rx] Sennosides/Docusate Sodium [Senna Plus] 2 each PO BID PRN #30 tablet 06/29/16 [ Rx] Allergies/Adverse Reactions: Allergies Cyclobenzaprine Allergy (Verified 06/17/16 21:10) Agitated levofloxacin [From Levaquin] Allergy (Verified 06/17/16 21:10) See Comments unsure morphine Allergy (Verified 06/17/16 21:10) Rash amitriptyline Adverse Reaction (Verified 06/17/16 21:10) See Comments makes her nervous fentanyl Adverse Reaction (Verified 06/17/16 21:10) Itching ondansetron [From Zofran (as hydrochloride)] Adverse Reaction (Verified 21:10) Itching Certification: Further, I certify that my clinical findings support that this patient is homebound (i.e. absences from home require considerable and taxing effort and are for medical reasons or evangelical services or infrequently or short duration when for other reasons) because: Homebound Reason: Patient requires assistance of a person or device to safely leave home Attestation: My signature below is to certify that this patient is under my care and that I, or nurse practitioner, or a physician's pastoral assistant working with me, has a face-to -face encounter with this patient.
== END 2016-06-29 16:55 | disposition home health service (06) | DRG 312 ==
LOC: 2NNU 12:33 → EMEROO 12:33 → 2NNU 17:06 → SUATTDRO 20:38
PROVIDERS: ADMIT Nurse Practitioner Acute Care; ATTEND Internal Medicine

== ENCOUNTER 2019-09-05 06:04 | Inpatient (IN) ==
[2019-09-05] MEDS ORDERED: cefOXitin 2,000 MG in Water for inj. (sterile) 20 ML IVP ONE (06:26)
[2019-09-05] MEDS ORDERED: Ringers Solution, Lactated 1,000 ML IVC SCH (06:30)
[2019-09-05] MEDS ORDERED: Lidocaine -MPF 2% 2 ML VIAL ONE ×3 (06:55→08:51)
[2019-09-05] MEDS ORDERED: *HR* Rocuronium Bromide 50 MG/5 ML VIAL ONE (06:55)
[2019-09-05] MEDS ORDERED: *HR* Succinylcholine 200 MG/10 ML VIAL IVP ONE (06:55)
[2019-09-05] MEDS ORDERED: Dexamethasone 4 MG/ML VIAL ONE (06:55)
[2019-09-05] MEDS ORDERED: *HR* Propofol 200 MG/20 ML VIAL IVP ONE ×2 (06:59)
[2019-09-05] MEDS ORDERED: *HR* Vasopressin 20 UNIT/ML VIAL ONE (07:03)
[2019-09-05] MEDS ORDERED: *HR* HYDROmorphone PF 0.5 MG/0.5 ML SYRINGE IVP PRN (07:20)
[2019-09-05] MEDS ORDERED: Ondansetron 4 MG/2 ML VIAL IVP ONE (07:20)
[2019-09-05] MEDS ORDERED: *HR* OxyCODONE Immed Rel 5 MG TABLET PO PRN (07:20)
[2019-09-05] MEDS ORDERED: Acetaminophen IV 1,000 MG/100 ML INFUS..BTL ONE (07:30)
[2019-09-05] MEDS ORDERED: *HR* FentaNYL (PF) 100 MCG/2 ML VIAL ONE (07:43)
[2019-09-05] MEDS ORDERED: EPHEDrine 50 MG/ML VIAL ONE (08:01)
[2019-09-05] MEDS ORDERED: *HR* HYDROMORPHONE 2 MG/ML VIAL ONE (08:20)
[2019-09-05] MEDS ORDERED: Ondansetron 4 MG/2 ML VIAL ONE (08:29)
[2019-09-05] MEDS ORDERED: Ketorolac 30 MG/ML VIAL ONE (08:30)
[2019-09-05] MEDS ORDERED: Albuterol 2.5 MG/3 ML NEBULIZER ONE (10:19)
[2019-09-05] MEDS ORDERED: Albuterol 2.5 MG/3 ML NEBULIZER IH ONE (10:26)
[2019-09-05] MEDS ORDERED: Naloxone 0.4 MG/ML INJ IVP PRN (11:56)
[2019-09-05] MEDS ORDERED: Ondansetron 4 MG/2 ML VIAL IVP PRN (11:56)
[2019-09-05] MEDS: Ketorolac 15 MG/ML VIAL IVP SCH ×2 (13:09→17:43)
[2019-09-05] MEDS: *HR* Heparin 5,000 UNIT/ML VIAL SQ SCH (17:43)
[2019-09-05] MEDS: Carbidopa/Levodopa 25/100 TABLET PO SCH (20:31)
[2019-09-05] MEDS: ALPRAZolam 0.5 MG TABLET PO PRN (20:31)
[2019-09-05] MEDS: 0.9 % Sodium Chloride 1,000 ML IVC SCH (20:32)
[2019-09-06] MEDS: Acetaminophen IV 1,000 MG/100 ML INFUS..BTL IVPB SCH ×4 (00:07→18:10)
[2019-09-06] MEDS ORDERED: Carbidopa/Levodopa 25/100 TABLET PO ONE (01:49)
[2019-09-06] MEDS: 0.9 % Sodium Chloride 1,000 ML IVC SCH ×2 (01:54→12:26)
[2019-09-06 04:18] LABS: Basophils % 0.1 %; Hematocrit 39.9 % (35.3-44.9); Hemoglobin 12.7 g/dL (11.5-15.4); Immature Granulocytes % 0.4 % (0-4); Lymphocytes # 0.7 K/mcL (0.6-4.6); Lymphocytes % 4.6 %; Mean Corpuscular HGB Conc 31.8 g/dL (31.6-35.5); Mean Corpuscular Hemoglobin 29.7 pg (28.0-33.3); Mean Corpuscular Volume 93.4 fL (83.0-100.0); Mean Platelet Volume 8.5 fL (9.4-12.4); Monocytes # 0.6 K/mcL (0.0-1.3); Monocytes % 4.2 %; Neutrophils # 13.3 K/mcL (1.6-8.9); Platelet Count 204 K/mcL (140-400); Red Blood Count 4.27 M/mcL (3.82-4.97); Red Cell Distribution Width 15.5 % (11.5-14.5); Segmented Neutrophils % 90.7 %; White Blood Count 14.7 K/mcL (4.3-11.1)
[2019-09-06 04:38] LABS: BUN/Creatinine Ratio 17 (6-26); Blood Urea Nitrogen 16 mg/dL (8-23); Calcium 9.1 mg/dL (8.6-10.3); Carbon Dioxide 23 mEq/L (23-29); Chloride 102 mEq/L (98-107); Glucose 134 mg/dL (70-105); Osmolality,Calculated 275 (280-300); Potassium 4.6 mEq/L (3.5-5.1); Sodium 131 mEq/L (136-145); eGFR For African Americans > 60 (> 60); eGFR For Non-African Americans 60 (> 60)
[2019-09-06] MEDS: *HR* Heparin 5,000 UNIT/ML VIAL SQ SCH ×2 (05:19→18:09)
[2019-09-06] MEDS: ALPRAZolam 0.25 MG TABLET PO SCH (09:25)
[2019-09-06] MEDS: Carbidopa/Levodopa 25/100 TABLET PO SCH ×4 (09:25→20:27)
[2019-09-06] MEDS: ALPRAZolam 0.5 MG TABLET PO PRN (16:33)
[2019-09-06] MEDS ORDERED: rOPINIRole 0.25 MG TABLET PO SCH (21:00)
[2019-09-07] MEDS: Acetaminophen IV 1,000 MG/100 ML INFUS..BTL IVPB SCH ×3 (00:11→14:03)
[2019-09-07] MEDS: 0.9 % Sodium Chloride 1,000 ML IVC SCH (04:03)
[2019-09-07] MEDS: *HR* Heparin 5,000 UNIT/ML VIAL SQ SCH (05:56)
[2019-09-07] MEDS: ALPRAZolam 0.25 MG TABLET PO SCH (09:46)
[2019-09-07] MEDS: Carbidopa/Levodopa 25/100 TABLET PO SCH ×2 (09:46→14:03)
[2019-09-07 16:01] VITALS: BP 115/63
== END 2019-09-07 18:10 | disposition home or self-care (01) | DRG 330 ==
LOC: SAMDAY 06:04 → 3ANU 11:33
PROVIDERS: ADMIT Surgery; ATTEND Surgery